=== PATIENT | male | born 1935 | race Caucasian/White ===

== ENCOUNTER 2021-05-25 04:23 | Inpatient (IN) | payer OTHER, MEDICARE ==
[2021-05-21 17:37] VITALS: BMI 23.4
[2021-05-25] MEDS ORDERED: GENTAMICIN SO4 80 MG/2 ML VIAL ONE (11:17)
[2021-05-25] MEDS ORDERED: LIDOCAINE 1%/EPI 1:100000 (50 ML MULTI DOSE VIAL) ONE (11:17)
[2021-05-25] MEDS ORDERED: BACITRACIN 15 GM TUBE TOPICAL OINTMENT ONE (11:17)
[2021-05-25] MEDS ORDERED: VANCOMYCIN 1,000 MG VIAL (RESTRICTED TO ID ONLY) ONE (11:17)
[2021-05-25] MEDS ORDERED: THROMBIN (BOVINE) 20,000 UNIT VIAL TP ONE (11:17)
[2021-05-25] MEDS ORDERED: PROPOFOL 20 ML ONE ×2 (13:46→17:34)
[2021-05-25] MEDS ORDERED: ETOMIDATE 20 MG/10 ML AMPUL IVPUSH ONE (13:47)
[2021-05-25] MEDS ORDERED: ROCURONIUM BROMIDE 50 MG/5 ML SYRINGE ONE (13:48)
[2021-05-25] MEDS ORDERED: SUCCINYLCHOLINE CHLORIDE 200 MG/10 ML SYRINGE ONE (13:49)
[2021-05-25] MEDS ORDERED: fentaNYL CITRATE 250 MCG/5 ML VIAL ONE ×2 (13:57)
[2021-05-25] MEDS ORDERED: ceFAZolin SODIUM 1 GM VIAL IVPB ONE (14:55)
[2021-05-25] MEDS ORDERED: KETAMINE HCL 200 MG/20 ML VIAL ONE (15:00)
[2021-05-25] MEDS ORDERED: BACITRACIN 50,000 UNITS VIAL TP ONE (15:50)
[2021-05-25] MEDS ORDERED: GENTAMICIN SO4 80 MG/2 ML VIAL IVPB ONE (15:51)
[2021-05-25] MEDS ORDERED: THROMBIN (BOVINE) 5,000 UNIT VIAL TP ONE (15:52)
[2021-05-25] MEDS ORDERED: HYDROGEN PEROXIDE 473 ML PO ONE (15:53)
[2021-05-25] MEDS ORDERED: BUPIVACAINE LIPOSOME/PF (EXPAREL) 266 MG/20 ML VIAL NR ONE ×2 (15:54→17:07)
[2021-05-25] MEDS ORDERED: BUPIVACAINE HCL/PF 0.5% (5 MG/ML) 30 ML VIAL IJ ONE ×2 (15:54→17:07)
[2021-05-25] MEDS ORDERED: NEOSTIGMINE METHYLSULFATE 0.5 MG/1 ML - 10 ML MDV ONE (16:29)
[2021-05-25] MEDS ORDERED: HYDROmorphone HCl 2 MG/ML VIAL ONE (16:53)
[2021-05-25] MEDS ORDERED: BENZOIN/ALOE VERA/STORAX/TOLU 58 ML BOTTLE ONE (16:57)
[2021-05-25] MEDS ORDERED: TRANEXAMIC ACID 1000 MG/10 ML VIAL ONE (17:02)
[2021-05-25] MEDS ORDERED: DEXAMETHASONE SOD PHOSPHATE 4 MG/1 ML VIAL ONE (17:03)
[2021-05-25] MEDS ORDERED: LIDOCAINE HCL/PF 2% SDV 5ML VIAL ONE (17:03)
[2021-05-25] MEDS ORDERED: ceFAZolin SODIUM 1 GM VIAL ONE (17:03)
[2021-05-25] MEDS ORDERED: ONDANSETRON 4 MG/2 ML VIAL ONE (17:03)
[2021-05-25] MEDS ORDERED: GLYCOPYRROLATE 0.2 MG/1 ML VIAL ONE (17:03)
[2021-05-25] MEDS ORDERED: LIDOCAINE HCL 2% JELLY (5 ML/TUBE) ONE (17:04)
[2021-05-25] MEDS ORDERED: ONDANSETRON 4 MG/2 ML VIAL IVPUSH PRN ×2 (17:52→18:02)
[2021-05-25] MEDS ORDERED: oxyCODONE HCL 5 MG TABLET PO PRN ×2 (17:52)
[2021-05-25] MEDS ORDERED: HYDROmorphone *PCA* 6MG/30ML DISP.SYRIN PCA SCH (18:15)
[2021-05-25] MEDS ORDERED: HYDROmorphone *PCA* 10MG/50ML DISP.SYRIN PCA SCH (18:15)
[2021-05-25] MEDS ORDERED: HYDROmorphone *PCA* 10MG/50ML DISP.SYRIN ONE (18:40)
[2021-05-25] MEDS ORDERED: HYDROmorphone *PCA* 10MG/50ML DISP.SYRIN PCA ONE (18:45)
[2021-05-25] MEDS: LACTATED RINGERS SOLUTION 1,000 ML IV SCH (20:34)
[2021-05-25] MEDS: TERAZOSIN HCL 5 MG CAPSULE PO SCH (22:11)
[2021-05-25] MEDS: CEFAZOLIN 2 GM/D5W 2 GM/50 ML ML IVPB SCH (22:25)
[2021-05-26] MEDS: LACTATED RINGERS SOLUTION 1,000 ML IV SCH ×2 (03:25→18:27)
[2021-05-26] MEDS: CEFAZOLIN 2 GM/D5W 2 GM/50 ML ML IVPB SCH ×2 (05:45→12:12)
[2021-05-26] MEDS ORDERED: oxyCODONE HCL 5 MG TABLET PO ONE (06:36)
[2021-05-26 07:34] LABS: BASO % 0.5 % (0-2.0); EOS % 0.5 % (0-4.5); HEMOGLOBIN 9.9 GM/dL (11.7-16.9); LYMPH % 3.1 % (8-40); MCHC 32.8 g/dl (32.0-35.9); MEAN CELL VOLUME 85.4 fl (80-96); MEAN PLT VOLUME 8.1 fl (7.5-11.1); MONO % 22.8 % (3.8-10.2); NEUT % 73.1 % (42.8-82.8); PLATELET COUNT 216 10^3/uL (134-434); RBC 3.51 M/mm3 (4.00-5.60); RDW 15.3 % (11.9-15.9)
[2021-05-26 07:40] LABS: WHITE BLOOD COUNT 59.9 K/mm3 (4.0-10.0)
[2021-05-26 07:50] LABS: CALCIUM 8.3 mg/dL (8.5-10.1)
[2021-05-26 07:51] LABS: ALBUMIN 3.3 g/dl (3.4-5.0); BLOOD UREA NITROGEN 25.2 mg/dL (7-18); MAGNESIUM 1.9 mg/dL (1.8-2.4)
[2021-05-26 07:53] LABS: PHOSPHOROUS 4.1 mg/dL (2.5-4.9)
[2021-05-26 07:54] LABS: CREATININE 1.3 mg/dL (0.55-1.3)
[2021-05-26 07:55] LABS: BILIRUBIN,TOTAL 0.6 mg/dL (0.2-1); TOT PROT 6.3 g/dl (6.4-8.2)
[2021-05-26] MEDS ORDERED: oxyCODONE HCL 5 MG TABLET PO PRN ×2 (08:47→16:51)
[2021-05-26 10:12] LABS: BASO % 0.5 % (0-2.0); EOS % 0.6 % (0-4.5); HEMATOCRIT 30.3 % (35.4-49); HEMOGLOBIN 9.8 GM/dL (11.7-16.9); LYMPH % 2.3 % (8-40); MCHC 32.5 g/dl (32.0-35.9); MEAN CELL VOLUME 86.2 fl (80-96); MEAN PLT VOLUME 8.3 fl (7.5-11.1); MONO % 25.8 % (3.8-10.2); NEUT % 70.8 % (42.8-82.8); PLATELET COUNT 232 10^3/uL (134-434); RBC 3.51 M/mm3 (4.00-5.60); RDW 15.1 % (11.9-15.9)
[2021-05-26 10:13] LABS: WHITE BLOOD COUNT 62.7 K/mm3 (4.0-10.0)
[2021-05-26] MEDS: oxyCODONE HCL 5 MG TABLET PO SCH ×4 (11:00→21:39)
[2021-05-26 11:12] LABS: ANISOCYTOSIS 0; MACROCYTOSIS 0; PLATELET ESTIMATE NORMAL
[2021-05-26] MEDS ORDERED: HYDROmorphone HCl 2 MG/ML VIAL IVPUSH ONE (11:17)
[2021-05-26 11:24] LABS: ANISOCYTOSIS 1+; MACROCYTOSIS 1+; PLATELET ESTIMATE NORMAL
[2021-05-26] MEDS ORDERED: diazePAM CARPU-JECT 10 MG/2 ML DISP.SYRIN IVPUSH ONE (11:45)
[2021-05-26] MEDS ORDERED: PT OWN MED DRAWER 7, Y5N ONE ×2 (12:03→21:30)
[2021-05-26] MEDS: TERAZOSIN HCL 5 MG CAPSULE PO SCH ×2 (12:12→21:39)
[2021-05-26] MEDS: ACETAMINOPHEN 500 MG TABLET (FP) PO SCH (20:00)
[2021-05-26] MEDS: HYDROmorphone *PCA* 10MG/50ML DISP.SYRIN PCA SCH (21:50)
[2021-05-27] MEDS: ACETAMINOPHEN 500 MG TABLET (FP) PO SCH ×6 (01:24→21:10)
[2021-05-27] MEDS: oxyCODONE HCL 5 MG TABLET PO SCH ×6 (01:24→21:06)
[2021-05-27] MEDS: LACTATED RINGERS SOLUTION 1,000 ML IV SCH ×2 (06:19→20:16)
[2021-05-27 07:13] LABS: BASO % 0.1 % (0-2.0); EOS % 0.7 % (0-4.5); HEMATOCRIT 28.1 % (35.4-49); HEMOGLOBIN 9.3 GM/dL (11.7-16.9); LYMPH % 3.8 % (8-40); MCH 28.2 pg (25.7-33.7); MCHC 32.9 g/dl (32.0-35.9); MEAN CELL VOLUME 85.6 fl (80-96); MEAN PLT VOLUME 8.2 fl (7.5-11.1); MONO % 19.1 % (3.8-10.2); NEUT % 76.3 % (42.8-82.8); PLATELET COUNT 194 10^3/uL (134-434); RBC 3.29 M/mm3 (4.00-5.60); RDW 15.3 % (11.9-15.9)
[2021-05-27 07:21] LABS: WHITE BLOOD COUNT 48.1 K/mm3 (4.0-10.0)
[2021-05-27 07:36] LABS: CALCIUM 8.4 mg/dL (8.5-10.1)
[2021-05-27 07:37] LABS: ALBUMIN 3.1 g/dl (3.4-5.0); BLOOD UREA NITROGEN 17.2 mg/dL (7-18); MAGNESIUM 1.8 mg/dL (1.8-2.4)
[2021-05-27 07:40] LABS: CREATININE 1.1 mg/dL (0.55-1.3)
[2021-05-27 07:41] LABS: BILIRUBIN,TOTAL 0.7 mg/dL (0.2-1); TOT PROT 6.1 g/dl (6.4-8.2)
[2021-05-27] MEDS ORDERED: POTASSIUM CHLORIDE TABS 20 MEQ TABLET.ER (FP) PO ONE (09:00)
[2021-05-27] MEDS ORDERED: MAGNESIUM 1GM/D5W 100ML - 100 ML IVPB IVPB ONE (09:00)
[2021-05-27 09:46] LABS: ANISOCYTOSIS 0; MACROCYTOSIS 0; PLATELET ESTIMATE NORMAL
[2021-05-27] MEDS ORDERED: PT OWN MED DRAWER 7, Y5N ONE ×2 (09:56→20:46)
[2021-05-27] MEDS: TERAZOSIN HCL 5 MG CAPSULE PO SCH ×2 (10:01→21:11)
[2021-05-27] MEDS ORDERED: CYANOCOBALAMIN 1,000 MCG TABLET (FP) PO SCH (11:30)
[2021-05-27] MEDS ORDERED: HYDROmorphone *PCA* 10MG/50ML DISP.SYRIN ONE (12:18)
[2021-05-27] MEDS ORDERED: PCA PUMP NR ONE ×2 (12:20→19:37)
[2021-05-27] MEDS: HYDROmorphone *PCA* 10MG/50ML DISP.SYRIN PCA SCH (12:34)
[2021-05-27] MEDS: ASCORBIC ACID 500 MG TABLET (FP) PO SCH (14:28)
[2021-05-27] MEDS: GABAPENTIN 300 MG CAPSULE PO SCH ×2 (14:28→21:09)
[2021-05-27] MEDS: CYANOCOBALAMIN PO SCH (14:28)
[2021-05-27] MEDS: DOCUSATE SODIUM 100 MG CAPSULE (FP) PO SCH ×2 (14:28→21:10)
[2021-05-27] MEDS: FOLIC ACID 1 MG TABLET (FP) PO SCH (14:28)
[2021-05-27] MEDS ORDERED: SENNOSIDES 8.6MG TABLET (FP) PO PRN (22:00)
[2021-05-28] MEDS ORDERED: ONDANSETRON 4 MG/2 ML VIAL IVPUSH PRN
[2021-05-28] MEDS: HYDROmorphone *PCA* 10MG/50ML DISP.SYRIN PCA SCH ×4 (01:04→18:28)
[2021-05-28] MEDS: oxyCODONE HCL 5 MG TABLET PO SCH ×6 (01:20→21:49)
[2021-05-28] MEDS: LACTATED RINGERS SOLUTION 1,000 ML IV SCH ×3 (01:22→20:00)
[2021-05-28] MEDS: ACETAMINOPHEN 500 MG TABLET (FP) PO SCH ×7 (01:23→21:56)
[2021-05-28] MEDS: DOCUSATE SODIUM 100 MG CAPSULE (FP) PO SCH ×3 (05:57→21:50)
[2021-05-28] MEDS: GABAPENTIN 300 MG CAPSULE PO SCH ×3 (05:58→21:50)
[2021-05-28] MEDS ORDERED: ACETAMINOPHEN 325 MG TABLET (FP) PO PRN (06:40)
[2021-05-28] MEDS: POTASSIUM GLUCONATE 99 MG PO SCH (07:23)
[2021-05-28 09:46] LABS: BASO % 0.3 % (0-2.0); EOS % 1.2 % (0-4.5); HEMOGLOBIN 9.5 GM/dL (11.7-16.9); LYMPH % 5.1 % (8-40); MCH 28.3 pg (25.7-33.7); MCHC 32.7 g/dl (32.0-35.9); MEAN CELL VOLUME 86.5 fl (80-96); MEAN PLT VOLUME 8.4 fl (7.5-11.1); MONO % 17.3 % (3.8-10.2); NEUT % 76.1 % (42.8-82.8); PLATELET COUNT 223 10^3/uL (134-434); RBC 3.35 M/mm3 (4.00-5.60); RDW 15.2 % (11.9-15.9)
[2021-05-28 10:01] LABS: WHITE BLOOD COUNT 51.9 K/mm3 (4.0-10.0)
[2021-05-28] MEDS ORDERED: PT OWN MED DRAWER 7, Y5N ONE ×3 (10:06→21:48)
[2021-05-28] MEDS: CYANOCOBALAMIN PO SCH (10:12)
[2021-05-28] MEDS: FOLIC ACID 1 MG TABLET (FP) PO SCH (10:12)
[2021-05-28] MEDS: ASCORBIC ACID 500 MG TABLET (FP) PO SCH (10:12)
[2021-05-28] MEDS: TERAZOSIN HCL 5 MG CAPSULE PO SCH ×2 (10:13→21:49)
[2021-05-28 10:20] LABS: BLOOD UREA NITROGEN 14.9 mg/dL (7-18); CALCIUM 8.3 mg/dL (8.5-10.1)
[2021-05-28 10:21] LABS: MAGNESIUM 1.8 mg/dL (1.8-2.4)
[2021-05-28 10:24] LABS: BILIRUBIN,TOTAL 0.7 mg/dL (0.2-1); CREATININE 1.1 mg/dL (0.55-1.3); PHOSPHOROUS 2.8 mg/dL (2.5-4.9); TOT PROT 6.1 g/dl (6.4-8.2)
[2021-05-28 12:21] LABS: ANISOCYTOSIS 0; MACROCYTOSIS 0; OVALOCYTE 1+; PLATELET ESTIMATE NORMAL; TEAR DROP CELLS 1+
[2021-05-28] MEDS ORDERED: PCA PUMP NR ONE (18:24)
[2021-05-29] MEDS: HYDROmorphone *PCA* 10MG/50ML DISP.SYRIN PCA SCH (01:19)
[2021-05-29] MEDS: oxyCODONE HCL 5 MG TABLET PO SCH ×3 (01:47→10:10)
[2021-05-29] MEDS: ACETAMINOPHEN 500 MG TABLET (FP) PO SCH ×3 (01:48→10:11)
[2021-05-29] MEDS: LACTATED RINGERS SOLUTION 1,000 ML IV SCH (04:04)
[2021-05-29] MEDS: GABAPENTIN 300 MG CAPSULE PO SCH (05:48)
[2021-05-29] MEDS: DOCUSATE SODIUM 100 MG CAPSULE (FP) PO SCH (05:49)
[2021-05-29 09:27] VITALS: BP 103/51; PULSE 88; TEMP 99.2
[2021-05-29] MEDS ORDERED: PCA PUMP NR ONE (09:51)
[2021-05-29] MEDS ORDERED: PT OWN MED DRAWER 7, Y5N ONE (09:52)
[2021-05-29] MEDS: ASCORBIC ACID 500 MG TABLET (FP) PO SCH (10:12)
[2021-05-29] MEDS: TERAZOSIN HCL 5 MG CAPSULE PO SCH (10:12)
[2021-05-29] MEDS: FOLIC ACID 1 MG TABLET (FP) PO SCH (10:12)
[2021-05-29] MEDS: CYANOCOBALAMIN PO SCH (10:13)
[2021-05-29 12:29] LABS: HEMATOCRIT 27.6 % (35.4-49); MCH 28.1 pg (25.7-33.7); MCHC 32.7 g/dl (32.0-35.9); MEAN CELL VOLUME 85.7 fl (80-96); PLATELET COUNT 228 10^3/uL (134-434); RBC 3.22 M/mm3 (4.00-5.60); RDW 15.1 % (11.9-15.9)
[2021-05-29 12:36] LABS: WHITE BLOOD COUNT 44.1 K/mm3 (4.0-10.0)
[2021-05-29 12:45] LABS: CALCIUM 8.6 mg/dL (8.5-10.1)
[2021-05-29 12:46] LABS: MAGNESIUM 1.7 mg/dL (1.8-2.4)
[2021-05-29 12:49] LABS: CREATININE 1.2 mg/dL (0.55-1.3); PHOSPHOROUS 2.6 mg/dL (2.5-4.9)
== END 2021-05-29 13:16 | disposition home health service (06) | DRG 472 ==
LOC: J2C 04:23 → JICU 20:12 → J5S 05-27 23:59
PROVIDERS: ADMIT Orthopaedic Surgery Orthopaedic Surgery of the Spine; ATTEND Internal Medicine
PROC: 0RG0071 Fusion of Occipital-cervical Joint with Autologous Tissue Substitute, Posterior Approach, Posterior Column, Open Approach (ICD-10-PCS; 2021-05-25)
PROC: 0PS304Z Reposition Cervical Vertebra with Internal Fixation Device, Open Approach (ICD-10-PCS; 2021-05-25)
PROC: 0RG2071 Fusion of 2 or more Cervical Vertebral Joints with Autologous Tissue Substitute, Posterior Approach, Posterior Column, Open Approach (ICD-10-PCS; principal; 2021-05-25 12:30)
DX: M47.22 Other spondylosis with radiculopathy, cervical region (principal); C91.10 Chronic lymphocytic leukemia of B-cell type not having achieved remission; M50.00 Cervical disc disorder with myelopathy, unspecified cervical region; G95.9 Disease of spinal cord, unspecified; M47.12 Other spondylosis with myelopathy, cervical region; M40.202 Unspecified kyphosis, cervical region; Z95.2 Presence of prosthetic heart valve; M48.02 Spinal stenosis, cervical region; N40.0 Benign prostatic hyperplasia without lower urinary tract symptoms; K59.00 Constipation, unspecified
CPT/HCPCS: 36415; 72125-TC; 76000-TC-FY; 80048; 80053; 83735; 84100; 85025; 85027; 86850; 86900; 86901; 94010; 94760; 97116-GP; 97161-GP; C9803; E0186; U0003; U0005